=== PATIENT | female | born 1985 | race Caucasian/White ===

== ENCOUNTER 2016-08-31 16:32 | Emergency (ER) | payer OTHER ==
[2016-08-31 16:51] VITALS: BP 113/71; BMI 30.2
--- NOTE | 2016-08-31 18:05 | DR.GENAD ---
HPI - PCP Primary Care Physician: NFD - Complaint/Symptoms Chief Complaint:: Abd pain/vaginal odor. Had in Mar 2016. Periods heavy and irregular - Nurses notes reviewed Nurses Notes Review: Yes - Source History Provided: Patient - Mode of Arrival Mode of Arrival: Ambulatory - Timing Onset of Chief Complaint: 03/18/16 Came on: Gradually - Duration Duration: Intermittent How lon Duration: Weeks - Location Location: vaginal - Severity Severity: Mild - Associated Signs and Symptoms Associated Signs and Symptoms: odor no discharge PMH - PMH Past Medical History: No Past Surgical History: Yes Surgical History: - Family History History of Family Medical Conditions: Yes Family Medical History: Hypertension - Social History Does patient currently use any type of tobacco product: Yes Have you used tobacco products in the last 12 months: Yes Type of Tobacco Use: Cigarettes Does any household member use tobacco: Yes Alcohol Use: Rarely Do you use any recreational Drugs:: Yes Lives With: Spouse Lives Where: Home - infectious screening In the last 2 months have you had wt loss of >10#?: NO Have you had fever, night sweats or hemotysis?: No Have you traveled outside the country in the last 6 months?: No Isolation: Standard ROS - Review of Systems Constitutional: No Symptoms Reported Eyes: No Symptoms Reported ENTM: No Symptoms Reported Respiratoy: No Symptoms Reported Cardiovascular: No Symptoms Reported Gastrointestinal/Abdominal: No Symptoms Reported Genitourinary: Other (odor). negative: Discharge Neurological: No Symptoms Reported Musculoskeletal: No Symptoms Reported Integumentary: No Symptoms Reported Hematologic/Lymphatic: No Symptoms Reported Endocrine: No Symptoms Reported Psychiatric: No Symptoms Reported PE - Vital Signs Vitals: Temperature 98.2 F Pulse Rate 92 Respiratory Rate 20 Blood Pressure 113/71 O2 Sat by Pulse Oximetry 91 - General Limitations: No Limitations General Appearance: Alert, In No Apparent Distress - Head Head Exam: Normal Inspection - Eyes Eye exam: Normal Appearance, EOMI. negative: Scleral Icterus, Conjunctival Injection - ENT Mouth Exam: Normal Inspection - Neck Neck Exam: Normal Inspection, Full ROM, Trachea Midline - Respiratory Respiratory Exam: negative: Accessory Muscle Use, Respiratory Distress - Abdominal Exam Abdominal Exam: Normal Inspection, Normal Bowel Sounds, Soft. negative: Distention, Tenderness, Guarding - Extremities Extremities Exam: Normal Inspection, Full ROM - Back Back Exam: Normal Inspection - Neurologic Neurological Exam: Alert, Oriented X3, CN II-XII Intact - Psychiatric Psychiatric Exam: Anxious - Skin Skin Exam: Intact, Normal Color ROR - Labs Reviewed Laboratory: HCG, Qual Negative <10 mIU/mL 08/31/16 18:11 Specimen Type Clean catch urine 08/31/16 19:12 Urine Color Yellow (YELLOW) 08/31/16 19:12 Urine Appearance Cloudy (CLEAR) 08/31/16 19:12 Urine pH 7.0 (5.0 - 8.0) 08/31/16 19:12 Ur Specific [place] 1.010 (1.000-1.030) 08/31/16 19:12 Urine Protein Negative (NEGATIVE) 08/31/16 19:12 Urine Glucose (UA) Negative (NEGATIVE) 08/31/16 19:12 Urine Ketones Negative (NEGATIVE) 08/31/16 19:12 Urine Occult Blood 4+ (NEGATIVE) 08/31/16 19:12 Urine Nitrite Negative (NEGATIVE) 08/31/16 19:12 Urine Bilirubin Negative (NEGATIVE) 08/31/16 19:12 Urine Urobilinogen 1+ (NORMAL) 08/31/16 19:12 Ur Leukocyte Esterase Negative (NEGATIVE) 08/31/16 19:12 Urine RBC 0-2 /HPF (NEGATIVE) 08/31/16 19:12 Urine WBC 0-2 /HPF (NEGATIVE) 08/31/16 19:12 Ur Squamous Epith Cells Rare /HPF (NEGATIVE) 08/31/16 19:12 Urine Bacteria 3+ /HPF (NEGATIVE) 08/31/16 19:12 Ur Culture Indicated? No/not indicated 08/31/16 19:12 Ur C. trach DNA (PCR) Not detected (NOT DETECT) 08/31/16 18:09 U N.gonorrhoeae DNA PCR Not detected (NOT DETECT) 08/31/16 18:09 - Diagnosis Discharge Problem: Bacterial vaginosis - Discharge Plan Condition: Stable - Follow ups/Referrals Follow ups/Referrals: NFD,None [Primary Care Provider] - 3 days - Instructions
[2016-08-31 18:36] LABS: SERUM PREGNANCY TEST, QUAL NEGATIVE <10 mIU/mL
[2016-08-31 19:34] LABS: BILIRUBIN,URINE NEGATIVE (NEGATIVE); BLOOD/HEMOGLOBIN,URINE 4+ (NEGATIVE); GLUCOSE, URINE NEGATIVE (NEGATIVE); KETONES,URINE NEGATIVE (NEGATIVE); LEUKOCYTE ESTERASE ,URINE NEGATIVE (NEGATIVE); NITRITES,URINE NEGATIVE (NEGATIVE); PROTEIN,URINE NEGATIVE (NEGATIVE); UROBILINOGEN,URINE 1+ (NORMAL)
[2016-08-31 19:43] LABS: APPEARANCE,URINE CLOUDY (CLEAR); BACTERIA,URINE 3+ /HPF (NEGATIVE); COLOR,URINE YELLOW (YELLOW); RBC,URINE 0-2 /HPF (NEGATIVE); SQUAMOUS EPITHELIAL CELL,UR RARE /HPF (NEGATIVE)
[2016-08-31 19:45] LABS: CHLAMYDIA TRACH URINE NOT DETECTED (NOT DETECT)
[2016-08-31] MEDS ORDERED: FLAGYL TAB 500 MG PO ONE (19:57)
[2016-08-31] MEDS ORDERED: FLAGYL TAB 250 MG PO ONE (19:59)
== END 2016-08-31 20:00 | disposition home or self-care (01) ==
LOC: ER 16:32
DX: N76.0 Acute vaginitis (principal)
CPT/HCPCS: 36415; 81001; 84703; 87491; 87591; 99282